=== PATIENT | male | born 1985 | race Hispanic/Latino ===

== ENCOUNTER 2017-02-10 11:36 | Emergency (ER) | payer SELFPAY ==
[2017-02-10 12:41] LABS: Basophils % (Auto) 0.5 % (0.0-1.8); Eosinophils % (Auto) 1.2 % (0.0-4.3); Hematocrit 42.1 % (35.5-45.6); Hemoglobin 14.3 gm/dl (11.8-15.2); Mean Corpuscular HGB Conc 34 % (32-34); Mean Corpuscular Hemoglobin 32 pg (28-32); Mean Corpuscular Volume 94 fl (84-94); Platelet Count 352 K/mm3 (140-440); Red Blood Count 4.47 M/mm3 (3.65-5.03); White Blood Count 12.5 K/mm3 (4.5-11.0)
[2017-02-10 12:56] LABS: Bilirubin,Urine NEG (Negative); Blood,Urine NEG (Negative); Ketones,Urine NEG (Negative); Leukocyte Esterase,Urine LG (Negative); Mucus,Urine FEW /HPF; Nitrite,Urine NEG (Negative); Urobilinogen,Urine < 2.0 mg/dL (<2.0)
[2017-02-10 13:05] LABS: Alanine Aminotransferase 21 units/L (7-56); Albumin 4.1 g/dL (3.9-5); Albumin/Globulin Ratio 1.5 %; Alkaline Phosphatase 77 units/L (35-129); Anion Gap 16 mmol/L; BUN/Creatinine Ratio 15.71; Blood Urea Nitrogen 11 mg/dL (9-20); Calcium 9.1 mg/dL (8.4-10.2); Carbon Dioxide 27 mmol/L (22-30); Chloride 99.4 mmol/L (98-107); Glucose 86 mg/dL (75-100); Lipase 81 units/L (13-60); Potassium 4.3 mmol/L (3.6-5.0); Sodium 138 mmol/L (137-145); Total Protein 6.9 g/dL (6.3-8.2)
--- NOTE | 2017-02-10 14:17 | Ultrasound Report ---
Testicular ultrasound: 2 days of left scrotal pain. The right testicle measures 17 x 22 x 40 mm. Testicle has a normal echo pattern with normal flow. A couple small cysts are identified in the otherwise unremarkable epididymis. A small right hydrocele is noted. The left testicle measures 20 x 27 x 32 mm. There is a normal echo pattern with normal flow. The epididymis head is unremarkable except for a small cyst but the body and tail are thickened with a generalized increased flow. There is a small to moderate hydrocele. Impression: The findings are consistent with left epididymitis.
[2017-02-10] MEDS ORDERED: XYLOCAINE 1% MPF 5 mL INFILTRATI ONE (19:04)
[2017-02-10] MEDS ORDERED: ROCEPHIN IM ONE (19:04)
[2017-02-10] MEDS ORDERED: BENADRYL IM ONE (19:04)
--- NOTE | 2017-02-10 19:11 | Emergency Department Report ---
ED General Adult HPI - General Chief complaint: Urogenital-Male Stated complaint: SWOLLEN TESTICLE Time Seen by Provider: 02/10/17 18:52 Source: patient Mode of arrival: Ambulatory Limitations: No Limitations - History of Present Illness Initial comments: PT c/o L testicle swelling and pain x 3 days. PT also c/o pain to landy inguinal canal. PT does have dysuria. PT currently a pt of [facility] for stomach cancer. PT states he has a surgery scheduled. PT concerned that his cancer has moved to his testicle. PT states he was tested for std 6 months ago and was negative. PT states he is only sexual active with girlfriend Complaint: testicle pain Onset/Timin -: Gradual, days(s) Location: genitals Severity scale (0 -10): 10 Quality: constant Consistency: constant Improves with: none Worsens with: other (urination ) Associated Symptoms: denies: fever/chills, loss of appetite (pt eating chips ), nausea/vomiting - Related Data Previous Rx's Medication Instructions Recorded Last Taken Type Acetaminophen/Codeine [Tylenol #3] 1 tab PO Q6H PRN #12 tab 02/10/17 Unknown Rx Doxycycline [Vibramycin CAP] 100 mg PO Q12HR #20 capsule 02/10/17 Unknown Rx Allergies Allergy/AdvReac Type Severity Reaction Status Date / Time Penicillins Allergy Unknown Rash Verified 02/10/17 12:02 ED Review of Systems ROS: Stated complaint: SWOLLEN TESTICLE Other details as noted in HPI Comment: All other systems reviewed and negative Constitutional: denies: fever Gastrointestinal: denies: abdominal pain, nausea, vomiting Genitourinary: dysuria, testicular pain. denies: discharge Skin: denies: rash ED Past Medical Hx - Past Medical History Previous Medical History?: Yes Hx Hypertension: No Hx CVA: No Hx Heart Attack/AMI: Yes (2012) Hx Congestive Heart Failure: No Hx Diabetes: No Hx Deep Vein Thrombosis: No Hx Pulmonary Embolism: No Hx GERD: Yes Hx Liver Disease: No Hx Renal Disease: No Hx of Cancer: Yes (stomach cancer [facility]) Hx Sickle Cell Disease: No Hx Arthritis: Yes Hx Headaches / Migraines: Yes Hx Seizures: No Hx Kidney Stones: No Hx Psychiatric Treatment: No Hx Asthma: No Hx COPD: No Hx Tuberculosis: No Hx Dementia: No Hx HIV: No - Surgical History Past Surgical History?: No Hx Coronary Stent: No Hx Open Heart Surgery: No Hx Pacemaker: No Hx Internal Defibrillator: No Hx Cholecystectomy: No Hx Appendectomy: No Hx Breast Surgery: No - Social History Smoking Status: Current Every Day Smoker Substance Use Type: None, Marijuana - Medications Home Medications: Home Medications Medication Instructions Recorded Confirmed Last Taken Type Acetaminophen/Codeine [Tylenol #3] 1 tab PO Q6H PRN #12 tab 02/10/17 Unknown Rx Doxycycline [Vibramycin CAP] 100 mg PO Q12HR #20 capsule 02/10/17 Unknown Rx ED Physical Exam - General Limitations: No Limitations General appearance: alert, in no apparent distress, other (thin) - Head Head exam: Present: atraumatic, normocephalic, normal inspection - Eye Eye exam: Present: normal appearance. Absent: conjunctival injection - ENT ENT exam: Present: normal exam, mucous membranes moist, normal external ear exam - Neck Neck exam: Present: normal inspection, full ROM - Respiratory Respiratory exam: Present: normal lung sounds bilaterally. Absent: respiratory distress, chest wall tenderness - Cardiovascular Cardiovascular Exam: Present: regular rate, normal rhythm, normal heart sounds - GI/Abdominal GI/Abdominal exam: Present: soft, normal bowel sounds. Absent: tenderness, guarding, rebound, rigid - exam: Present: testicular tenderness, other (tenderness and lymphadenopathy to landy inguinal canal ) - Extremities Exam Extremities exam: Present: normal inspection, full ROM - Back Exam Back exam: Present: normal inspection, full ROM - Neurological Exam Neurological exam: Present: alert, oriented X3 - Psychiatric Psychiatric exam: Present: normal affect, normal mood - Skin Skin exam: Present: warm, dry, intact ED Course Vital Signs 02/10/17 02/10/17 11:47 19:39 Temperature 98.1 F Pulse Rate 93 H 72 Respiratory 16 18 Rate Blood Pressure 145/93 Blood Pressure 145/93 162/73 [Right] O2 Sat by Pulse 99 100 Oximetry - Reevaluation(s) Reevaluation #1: 02/10/17 19:09 Pt aware that no CA found on US. PT also aware of dx. PT aware that in his age group, the two most common causes are from gc/ct. Will treat empirically and order cultures. PT aware that his sexual partners will need testing/ treatment. PT is aware that he is to refrain from sexual activity at this time. Pt states his allergy to PCN is rash. Will give pt Benadryl with his Rocephin. PT is aware there is potential for cross reaction. Reevaluation #2: 02/10/17 20:24 PT received Rocephin, no sign of allergic reaction. PT aware of plan of care. No questions at this time. - Pulse Oximetry Interpretation Digit-Finger Initial Pulse Oximetry Readin Actions Taken: none ED Medical Decision Making - Lab Data Result diagrams: 02/10/17 12:27 02/10/17 12:27 Lab Results 02/10/17 02/10/17 02/10/17 Range/Units 11:56 12:27 12:27 WBC 12.5 H (4.5-11.0) K/mm3 RBC 4.47 (3.65-5.03) M/mm3 Hgb 14.3 (11.8-15.2) gm/dl Hct 42.1 (35.5-45.6) % MCV 94 (84-94) fl MCH 32 (28-32) pg MCHC 34 (32-34) % RDW 13.0 L (13.2-15.2) % Plt Count 352 (140-440) K/mm3 Lymph % (Auto) 17.1 (13.4-35.0) % [place] % (Auto) 8.2 H (0.0-7.3) % Eos % (Auto) 1.2 (0.0-4.3) % Baso % (Auto) 0.5 (0.0-1.8) % Lymph # 2.1 (1.2-5.4) K/mm3 [place] # 1.0 H (0.0-0.8) K/mm3 Eos # 0.1 (0.0-0.4) K/mm3 Baso # 0.1 (0.0-0.1) K/mm3 Seg Neutrophils % 73.0 H (40.0-70.0) % Seg Neutrophils # 9.2 H (1.8-7.7) K/mm3 Sodium 138 (137-145) mmol/L Potassium 4.3 (3.6-5.0) mmol/L Chloride 99.4 (98-107) mmol/L Carbon Dioxide 27 (22-30) mmol/L Anion Gap 16 mmol/L BUN 11 (9-20) mg/dL Creatinine 0.7 L (0.8-1.5) mg/dL Estimated GFR > 60 ml/min BUN/Creatinine Ratio 15.71 % Glucose 86 (75-100) mg/dL Calcium 9.1 (8.4-10.2) mg/dL Total Bilirubin 0.30 (0.1-1.2) mg/dL AST 19 (5-40) units/L ALT 21 (7-56) units/L Alkaline Phosphatase 77 (35-129) units/L Total Protein 6.9 (6.3-8.2) g/dL Albumin 4.1 (3.9-5) g/dL Albumin/Globulin Ratio 1.5 % Lipase 81 H (13-60) units/L Urine Color Yellow (Yellow) Urine Turbidity Slightly-cloudy (Clear) Urine pH 8.0 H (5.0-7.0) Ur Specific [place] 1.021 (1.003-1.030) Urine Protein 30 mg/dl (Negative) mg/dL Urine Glucose (UA) Neg (Negative) mg/dL Urine Ketones Neg (Negative) mg/dL Urine Blood Neg (Negative) Urine Nitrite Neg (Negative) Urine Bilirubin Neg (Negative) Urine Urobilinogen < 2.0 (<2.0) mg/dL Ur Leukocyte Esterase Lg (Negative) Urine WBC (Auto) 118.0 H (0.0-6.0) /HPF Urine RBC (Auto) 17.0 (0.0-6.0) /HPF U Epithel Cells (Auto) < 1.0 (0-13.0) /HPF Urine Mucus Few /HPF - Radiology Data Radiology results: report reviewed Scrotal US- L epididymitis - Differential Diagnosis Testicular CA, STD, torsion, hydrocele, epididymitis Critical Care Time: No Critical care attestation.: If time is entered above; I have spent that time in minutes in the direct care of this critically ill patient, excluding procedure time. ED Disposition Clinical Impression: Acute epididymitis Disposition: DISCHARGED TO HOME OR SELFCARE Is pt being admited?: No Does the pt Need Aspirin: No Condition: Stable Instructions: Sexually Transmitted Diseases (ED), Condom Use (ED), Epididymitis (ED) Additional Instructions: No sex for the next two weeks All of your sexual partners will need testing/ treatment If should take about 3 days to get your culture results. Follow up with your PCP for further std testing and possible Urologist referral No driving or ETOH after taking Tylenol #3 Avoid direct sun exposure when you are taking Doxy Return to ED if your develop a rash or itching after taking the Rocephin. Prescriptions: Acetaminophen/Codeine [Tylenol #3] 1 tab PO Q6H PRN #12 tab PRN Reason: Pain , Severe (7-10) Doxycycline [Vibramycin CAP] 100 mg PO Q12HR #20 capsule Referrals: PRIMARY CARE, [Primary Care Provider] - 3-5 Days IDALIA ROPER MD [Staff Physician] - 3-5 Days Forms: STI Treatment and Prevention, Work/School Release Form(ED) Time of Disposition: 20:26
[2017-02-10 19:40] VITALS: BP 162/73
[2017-02-10] MEDS ORDERED: NORCO 5/325 PO ONE (20:24)
== END 2017-02-10 20:46 | disposition home or self-care (01) ==
LOC: ED 11:36
DX: N45.1 Epididymitis (principal); K21.9 Gastro-esophageal reflux disease without esophagitis; G43.909 Migraine, unspecified, not intractable, without status migrainosus; F17.200 Nicotine dependence, unspecified, uncomplicated; F12.10 Cannabis abuse, uncomplicated; M19.90 Unspecified osteoarthritis, unspecified site; Z85.47 Personal history of malignant neoplasm of testis; Z88.0 Allergy status to penicillin
CPT/HCPCS: 36415; 80053; 81001; 83690; 85025; 87086; 87591; 93975; 96372; 99284; J0696; J1200

== ENCOUNTER 2017-05-03 22:30 | Emergency (ER) | payer SELFPAY ==
--- NOTE | 2017-05-03 22:44 | Emergency Department Report ---
ED General Adult HPI - General Stated complaint: ETOH Time Seen by Provider: 05/03/17 22:42 - History of Present Illness Initial comments: Patient is a 31-year-old male presents with intoxication. Patient was found with alcohol and bleed around him. Patient wasn't responsive so he was brought in by EMS. This was limited due to patient's intoxication - Related Data Home Medications Medication Instructions Recorded Confirmed Last Taken No Known Home Medications [No 05/03/17 05/03/17 Unknown Reported Home Medications] Allergies Allergy/AdvReac Type Severity Reaction Status Date / Time Penicillins Allergy Unknown Rash Verified 02/10/17 12:02 ED Review of Systems ROS: Stated complaint: ETOH Other details as noted in HPI Comment: Unobtainable due to pts medical conditions ED Past Medical Hx - Past Medical History Hx Hypertension: No Hx CVA: No Hx Heart Attack/AMI: Yes (2012) Hx Congestive Heart Failure: No Hx Diabetes: No Hx Deep Vein Thrombosis: No Hx Pulmonary Embolism: No Hx GERD: Yes Hx Liver Disease: No Hx Renal Disease: No Hx Sickle Cell Disease: No Hx Arthritis: Yes Hx Headaches / Migraines: Yes Hx Seizures: No Hx Kidney Stones: No Hx Psychiatric Treatment: No Hx Asthma: No Hx COPD: No Hx Tuberculosis: No Hx Dementia: No Hx HIV: No - Surgical History Hx Coronary Stent: No Hx Open Heart Surgery: No Hx Pacemaker: No Hx Internal Defibrillator: No Hx Cholecystectomy: No Hx Appendectomy: No Hx Breast Surgery: No - Social History Smoking Status: Current Every Day Smoker Substance Use Type: None, Marijuana - Medications Home Medications: Home Medications Medication Instructions Recorded Confirmed Last Taken Type No Known Home Medications [No 05/03/17 05/03/17 Unknown History Reported Home Medications] ED Physical Exam - General General appearance: appears intoxicated - Head Head exam: Present: atraumatic, normocephalic - Eye Eye exam: Present: normal appearance - ENT ENT exam: Present: mucous membranes moist - Respiratory Respiratory exam: Present: normal lung sounds bilaterally. Absent: respiratory distress - Cardiovascular Cardiovascular Exam: Present: regular rate, normal rhythm. Absent: systolic murmur, diastolic murmur, rubs, gallop - GI/Abdominal GI/Abdominal exam: Present: soft, normal bowel sounds - Rectal Rectal exam: Present: deferred - Back Exam Back exam: Present: normal inspection - Neurological Exam Neurological exam: Present: other (intoxicated) - Psychiatric Psychiatric exam: Present: other (intoxication and) - Skin Skin exam: Present: diaphoretic ED Course Vital Signs 05/03/17 05/03/17 05/03/17 22:36 22:40 22:50 Temperature Pulse Rate 78 72 59 L Respiratory 14 16 25 H Rate Blood Pressure 123/79 123/79 Blood Pressure [Right] O2 Sat by Pulse 100 100 100 Oximetry 05/03/17 05/03/17 05/03/17 22:52 23:00 23:10 Temperature 99.1 F Pulse Rate 76 62 75 Respiratory 17 0 L 11 L Rate Blood Pressure 123/79 118/72 118/72 Blood Pressure 123/79 [Right] O2 Sat by Pulse 100 100 100 Oximetry 05/03/17 05/03/17 05/03/17 23:22 23:31 23:41 Temperature Pulse Rate 84 65 64 Respiratory 14 16 13 Rate Blood Pressure 119/83 121/71 Blood Pressure 139/76 [Right] O2 Sat by Pulse 100 100 100 Oximetry 05/03/17 05/03/17 05/04/17 23:43 23:51 00:01 Temperature Pulse Rate 62 60 60 Respiratory 12 11 L 12 Rate Blood Pressure 121/71 121/71 113/70 Blood Pressure [Right] O2 Sat by Pulse 100 100 100 Oximetry 05/04/17 05/04/17 05/04/17 00:11 00:21 01:13 Temperature Pulse Rate 71 79 57 L Respiratory 8 L 11 L 11 L Rate Blood Pressure 110/76 110/76 131/78 Blood Pressure [Right] O2 Sat by Pulse 100 100 100 Oximetry 05/04/17 05/04/17 05/04/17 01:21 01:31 01:41 Temperature Pulse Rate 55 L 55 L 65 Respiratory 12 14 12 Rate Blood Pressure 131/78 112/72 112/72 Blood Pressure [Right] O2 Sat by Pulse 100 100 99 Oximetry 05/04/17 05/04/17 01:51 02:01 Temperature Pulse Rate 52 L 59 L Respiratory 11 L 12 Rate Blood Pressure 114/75 111/69 Blood Pressure [Right] O2 Sat by Pulse 100 100 Oximetry - Reevaluation(s) Reevaluation #1: 05/04/17 02:07 Chin has sobered up and states that he feels ready to go patient is able to ambulate and tolerated a sandwich without any difficulty. 05/04/17 03:10 ED Medical Decision Making - Lab Data Result diagrams: 05/03/17 22:47 05/03/17 22:47 Lab Results 05/03/17 05/03/17 05/03/17 Range/Units 22:47 22:47 22:47 WBC 6.6 (4.5-11.0) K/mm3 RBC 4.32 (3.65-5.03) M/mm3 Hgb 14.1 (11.8-15.2) gm/dl Hct 41.4 (35.5-45.6) % MCV 96 H (84-94) fl MCH 33 H (28-32) pg MCHC 34 (32-34) % RDW 13.2 (13.2-15.2) % Plt Count 214 (140-440) K/mm3 Lymph % (Auto) 39.1 H (13.4-35.0) % [place] % (Auto) 3.8 (0.0-7.3) % Eos % (Auto) 2.4 (0.0-4.3) % Baso % (Auto) 1.1 (0.0-1.8) % Lymph # 2.6 (1.2-5.4) K/mm3 [place] # 0.3 (0.0-0.8) K/mm3 Eos # 0.2 (0.0-0.4) K/mm3 Baso # 0.1 (0.0-0.1) K/mm3 Seg Neutrophils % 53.6 (40.0-70.0) % Seg Neutrophils # 3.5 (1.8-7.7) K/mm3 Sodium 135 L (137-145) mmol/L Potassium 3.5 L (3.6-5.0) mmol/L Chloride 98.8 (98-107) mmol/L Carbon Dioxide 17 L (22-30) mmol/L Anion Gap 23 mmol/L BUN 13 (9-20) mg/dL Creatinine 0.9 (0.8-1.5) mg/dL Estimated GFR > 60 ml/min BUN/Creatinine Ratio 14.44 % Glucose 131 H (75-100) mg/dL Calcium 9.4 (8.4-10.2) mg/dL Total Bilirubin 0.50 (0.1-1.2) mg/dL AST 30 (5-40) units/L ALT 23 (7-56) units/L Alkaline Phosphatase 62 (35-129) units/L Total Protein 7.1 (6.3-8.2) g/dL Albumin 3.9 (3.9-5) g/dL Albumin/Globulin Ratio 1.2 % Urine Opiates Screen Urine Methadone Screen Ur Barbiturates Screen Ur Phencyclidine Scrn Ur Amphetamines Screen U Benzodiazepines Scrn Urine Cocaine Screen U Marijuana (THC) Screen Drugs of Abuse Note Plasma/Serum Alcohol < 0.01 (0-0.07) gm% 05/03/17 Range/Units 23:22 WBC (4.5-11.0) K/mm3 RBC (3.65-5.03) M/mm3 Hgb (11.8-15.2) gm/dl Hct (35.5-45.6) % MCV (84-94) fl MCH (28-32) pg MCHC (32-34) % RDW (13.2-15.2) % Plt Count (140-440) K/mm3 Lymph % (Auto) (13.4-35.0) % [place] % (Auto) (0.0-7.3) % Eos % (Auto) (0.0-4.3) % Baso % (Auto) (0.0-1.8) % Lymph # (1.2-5.4) K/mm3 [place] # (0.0-0.8) K/mm3 Eos # (0.0-0.4) K/mm3 Baso # (0.0-0.1) K/mm3 Seg Neutrophils % (40.0-70.0) % Seg Neutrophils # (1.8-7.7) K/mm3 Sodium (137-145) mmol/L Potassium (3.6-5.0) mmol/L Chloride (98-107) mmol/L Carbon Dioxide (22-30) mmol/L Anion Gap mmol/L BUN (9-20) mg/dL Creatinine (0.8-1.5) mg/dL Estimated GFR ml/min BUN/Creatinine Ratio % Glucose (75-100) mg/dL Calcium (8.4-10.2) mg/dL Total Bilirubin (0.1-1.2) mg/dL AST (5-40) units/L ALT (7-56) units/L Alkaline Phosphatase (35-129) units/L Total Protein (6.3-8.2) g/dL Albumin (3.9-5) g/dL Albumin/Globulin Ratio % Urine Opiates Screen Presumptive negative Urine Methadone Screen Presumptive negative Ur Barbiturates Screen Presumptive negative Ur Phencyclidine Scrn Presumptive negative Ur Amphetamines Screen Presumptive positive U Benzodiazepines Scrn Presumptive negative Urine Cocaine Screen Presumptive negative U Marijuana (THC) Screen Presumptive positive Drugs of Abuse Note Disclamer Plasma/Serum Alcohol (0-0.07) gm% - EKG Data -: EKG Interpreted by Me - EKG Data 05/04/17 01:50 EKG shows normal sinus rhythm nonspecific intraventricular conduction delay - Radiology Data Radiology results: report reviewed, image reviewed CT head shows no acute intracranial abnormalities - Medical Decision Making Chief medical diagnosis: Drug intoxication Differential medical diagnosis: Brain bleed, alcoholic abnormality, dehydration We'll get CT head, CBC, CMP, urine drug screen CT head shows no acute intracranial process Laboratory findings are unrevealing due to patient's history and physical exam patient likely took synthetic drug that cannot be detected by our drug screen. Discussed findings with patient he stated that he is taking drugs. He agrees with plan for discharge Critical care attestation.: If time is entered above; I have spent that time in minutes in the direct care of this critically ill patient, excluding procedure time. ED Disposition Clinical Impression: Drug abuse, Drowsiness Disposition: DC-01 TO HOME OR SELFCARE Is pt being admited?: No Does the pt Need Aspirin: No Condition: Stable Referrals: PRIMARY CARE, [Primary Care Provider] - 3-5 Days Time of Disposition: 02:15
[2017-05-03 23:14] LABS: Basophils % (Auto) 1.1 % (0.0-1.8); Eosinophils % (Auto) 2.4 % (0.0-4.3); Hematocrit 41.4 % (35.5-45.6); Hemoglobin 14.1 gm/dl (11.8-15.2); Mean Corpuscular HGB Conc 34 % (32-34); Mean Corpuscular Hemoglobin 33 pg (28-32); Mean Corpuscular Volume 96 fl (84-94); Red Blood Count 4.32 M/mm3 (3.65-5.03); Red Cell Distribution Width 13.2 % (13.2-15.2); White Blood Count 6.6 K/mm3 (4.5-11.0)
[2017-05-03 23:33] LABS: Platelet Count 214 K/mm3 (140-440)
[2017-05-03 23:36] LABS: Urine Drugs of Abuse Note Disclamer
[2017-05-03 23:51] LABS: Alanine Aminotransferase 23 units/L (7-56); Albumin 3.9 g/dL (3.9-5); Albumin/Globulin Ratio 1.2 %; Alkaline Phosphatase 62 units/L (35-129); Anion Gap 23 mmol/L; BUN/Creatinine Ratio 14.44; Blood Urea Nitrogen 13 mg/dL (9-20); Calcium 9.4 mg/dL (8.4-10.2); Carbon Dioxide 17 mmol/L (22-30); Chloride 98.8 mmol/L (98-107); Glucose 131 mg/dL (75-100); Potassium 3.5 mmol/L (3.6-5.0); Sodium 135 mmol/L (137-145); Total Protein 7.1 g/dL (6.3-8.2)
--- NOTE | 2017-05-04 01:13 | XRay Report ---
FINAL REPORT PROCEDURE: XR CHEST 1V AP TECHNIQUE: Chest radiograph anteroposterior view. CPT 82422 HISTORY: Altered mental status. COMPARISON: No prior studies are available for comparison. FINDINGS: The patient is rotated to the left. Heart size and pulmonary vasculature appear normal. No evidence of pulmonary edema pleural effusion infiltrate or mass. No acute bony abnormalities are visualized. The patient appears to be leaning to the left versus thoracolumbar scoliosis convex to the right. IMPRESSION: No acute cardiopulmonary abnormality. Spine curvature as described.
[2017-05-04] MEDS ORDERED: NACL 0.9% 1000 ML 1,000 ML IV ONE (01:20)
--- NOTE | 2017-05-04 01:43 | Cat Scan Report ---
FINAL REPORT EXAM: CT HEAD/BRAIN WO CON HISTORY: altered mental status COMPARISON: None available. TECHNIQUE: Axial images obtained skull base through vertex. FINDINGS: No acute intracranial hemorrhage, midline shift or pathologic extra axial fluid collection. Ventricles and cisterns are normal in size and configuration for the patient's age. Carl-white differentiation preserved. Calvarium grossly intact. Orbits are grossly unremarkable. Mild mucosal thickening the paranasal sinuses. Mastoid air cells are clear. IMPRESSION: No grossly acute intracranial abnormality.
[2017-05-04 02:28] VITALS: BP 111/69
== END 2017-05-04 02:29 | disposition home or self-care (01) ==
LOC: ED 22:30
DX: F10.129 Alcohol abuse with intoxication, unspecified (principal); I25.2 Old myocardial infarction; F17.200 Nicotine dependence, unspecified, uncomplicated; F12.10 Cannabis abuse, uncomplicated; R40.0 Somnolence; F19.10 Other psychoactive substance abuse, uncomplicated
CPT/HCPCS: 36415; 70450; 71010; 80053; 80307; 82550; 85025; 93005; 93010; 96360; 99285; G0480; J7030; 80320